=== PATIENT | female | born 1985 | race Caucasian/White ===

== ENCOUNTER 2016-11-22 17:03 | Emergency (ER) | payer MEDICAID ==
[~2016-11-22] VITALS: Ht 152.4 cm; Wt 77.0 kg
[~2016-11-22 17:03] MED LIST: PREN1TAB12 PO
[2016-11-22 17:05] VITALS: Ht 152.4 cm; Wt 77.0 kg
[2016-11-22] MEDS ORDERED: HYDROCODONE/APAP (5/325) TAB PO STA (18:46)
[2016-11-22 19:20] LABS: ADD UMIC NO; URINE BILIRUBIN (Dip) NEGATIVE (NEGATIVE); URINE BLOOD (Dip) NEGATIVE (NEGATIVE); URINE COLOR LT. YELLOW (YELLOW); URINE GLUCOSE (Dip) NEGATIVE (NEGATIVE); URINE KETONES (Dip) NEGATIVE (NEGATIVE); URINE LEUKOCYTE ESTERASE (Dip) NEGATIVE (NEGATIVE); URINE NITRITE (Dip) NEGATIVE (NEGATIVE); URINE TOTAL PROTEIN (Dip) NEGATIVE (NEGATIVE); URINE UROBILINOGEN (Dip) 0.2 E.U./dL (0.1-1.0)
--- NOTE | 2016-11-22 19:36 | RADRPT ---
PROCEDURE: US Pelvis. CLINICAL INDICATION: Vaginal bleeding TECHNIQUE: Multiple sonographic images of the pelvis were obtained utilizing a transabdominal and endovaginal technique. The images were reviewed on a PACS workstation. COMPARISON: None. FINDINGS: The uterus is visualized and measures 6 x 5.1 x 3.3 cm in size. At least 3 hypoechoic and heterogene ous uterine masses are seen measuring up to 2.1 cm in size. The endometrial echo complex is normal a nd measures 5.3 mm. There is no evidence for free fluid. The right ovary has a normal echotexture an d measures 3.3 x 1.3 x 1.6 cm. The left ovary has a normal echotexture and measures 2.7 x 1.5 x 1.7 cm. No adnexal masses are noted. IMPRESSION: Leiomyomatous uterus. RPTAT: HPNM Physician Christy Date Time Electronically viewed and signed by Physician Christy on 11/22/2016 19:35 /
[2016-11-22] MEDS ORDERED: IBUP400T22 PO (19:39)
--- NOTE | 2016-11-22 19:45 | ERD ---
ER Documentation Chief Complaint Date/Time DATE: 11/22/16 TIME: 19:40 Chief Complaint PELVIC PAIN X 2 MOS HPI This is a 31-year-old female presenting to the emergency department complaining of left-sided pelvic pain that radiates to her groin for the past 2 months. Patient states that the pain is worse in the past week, she rates the pain moderate in severity that comes and goes. Patient states that she has never been evaluated by a physician. Patient states that she has not had her menstrual period in over 6 months, she had a 6 months ago. She denies any nausea, painful urination, frequency or urgency. Patient states she took ibuprofen at 3 PM without any relief ROS All systems reviewed and are negative except as per history of present illness. Medications Home Meds Active Scripts Ibuprofen* (Ibuprofen*) 400 Mg Tablet, 600 MG PO Q6H Y for PAIN, #30 TAB Prov:SHELIA DICKERSON PA-C 11/22/16 Reported Medications Vit/Fe Fumarate/Fa ( 1-1 Tablet) 1 Tab Tablet, 1 TAB PO DAILY, TAB 03/04/11 Allergies Allergies: Coded Allergies: No Known Drug Allergies (Verified Allergy, Unknown, 05/24/16) PMhx/Soc Medical and Surgical Hx: pt denies Medical Hx History of Surgery: Yes ( X 2.) Anesthesia Reaction: No Hx Neurological Disorder: No Hx Respiratory Disorders: No Hx Cardiac Disorders: No Hx Psychiatric Problems: No Hx Miscellaneous Medical Probl: No Hx Alcohol Use: No Hx Substance Use: No Hx Tobacco Use: No Smoking Status: Never smoker Physical Exam Vitals Vital Signs Date Time Temp Pulse Resp B/P Pulse Ox O2 Delivery O2 Flow Rate FiO2 11/22/16 17:05 98.4 99 20 129/78 99 Physical Exam GENERAL: well-developed/well-nourished, in no apparent distress, non-toxic appearing HENT: NC/AT, moist mucous membranes EYES: Conjunctiva normal NECK: Supple, no lymphadenopathy PULM: CTA bilaterally, no rales, rhonchi, or wheezing heard CV: Normal S1S2, RRR, good capillary refill GI: Soft, non-distended, tender to palpation pelvic Normal bowel sounds, no masses or organomegaly felt on exam No gross peritonitis, no bruits Negative Rovsing, negative Resendez, negative McBurney's point, Negative CVAT BACK: No masses EXT: No clubbing, cyanosis, or edema NEURO: Alert and Orientated SKIN: Intact, normal turgor PSYCH: Normal mood and mentation Results 24 hrs Laboratory Tests Test 11/22/16 19:01 Urine Color LT. YELLOW Urine Clarity CLEAR Urine pH 6.0 Urine Specific [place] 1.025 Urine Ketones NEGATIVE Urine Nitrite NEGATIVE Urine Bilirubin NEGATIVE Urine Urobilinogen 0.2 E.U./dL Urine Leukocyte Esterase NEGATIVE Urine Hemoglobin NEGATIVE Urine Glucose NEGATIVE% Urine Total Protein NEGATIVE Current Medications Medications (Trade) Dose Ordered Sig/Viv Route PRN Reason Start Time Stop Time Status Last Admin Dose Admin Acetaminophen/ Hydrocodone Bitart ([place] (5/325)) 1 tab ONCE STAT PO 11/22/16 18:46 11/22/16 18:48 DC 11/22/16 19:03 Procedures/MDM This is a 31-year-old female presenting to the emergency room complaining of pelvic pain for the past 2 months which has worsened in the past week. This is likely due to fibroids. There was no evidence of any ovarian torsion, ruptured ovarian cyst or other acute emergent conditions at this time. Patient is appropriate to follow-up with an [employer] for further evaluation management. She stable for discharge for home. Prescription for ibuprofen was provided. Discussed return the ER for any worsening signs or symptoms. She understands and agrees with plan Pelvic US: Leiomyomatous uterus. The uterus is visualized and measures 6 x 5.1 x 3.3 cm in size. At least 3 hypoechoic and heterogeneous uterine masses are seen measuring up to 2.1 cm in size. The endometrial echo complex is normal and measures 5.3 mm. There is no evidence for free fluid. The right ovary has a normal echotexture and measures 3.3 x 1.3 x 1.6 cm. The left ovary has a normal echotexture and measures 2.7 x 1.5 x 1.7 cm. No adnexal masses are noted. Urinalysis is unremarked Departure Diagnosis: Primary Impression: Fibroids Condition: Stable Patient Instructions: What Are Fibroids?, Uterine Fibroids Additional Instructions: Visite a ortiz dilcia perez para un EXAMEN.Regrese a estas instalaciones si no se mejora saranya esperbamos o saranya le dijimos. [place] toda la medicina ryan y saranya se le indic. Regrese a estas instalaciones si no se mejora saranya esperbamos o saranya le dijimos. SHELIA DICKERSON PA-C November 22, 2016 19:45
== END 2016-11-22 19:50 | disposition home or self-care (01) ==
LOC: FTE 17:03
DX: D25.9 Leiomyoma of uterus, unspecified (principal)
CPT/HCPCS: 76830; 76856; 81003; Z7502; Z7610